=== PATIENT | male | born 1955 | race American Indian/Alaskan Native ===

== ENCOUNTER 2021-01-20 15:46 | Outpatient (CLI) | payer MEDICARE, OTHER ==
--- NOTE | 2021-01-20 16:54 | XRay Report ---
CHEST 2 VIEWS INDICATION / CLINICAL INFORMATION: POST COVID 19 CONDITION B94.8. COMPARISON: None available. FINDINGS: SUPPORT DEVICES: None. HEART / MEDIASTINUM: No significant abnormality. LUNGS / PLEURA: Mild increased interstitial prominence in left perihilar region and retrocardiac nithya on left lower lung. No pneumothorax. Signer Name: Edmundo Harvey MD Signed: 01/20/2021 4:50 PM Workstation Name: [id number]
== END 2021-01-20 15:47 | disposition home or self-care (01) ==
LOC: SPVIMAG 15:46
PROVIDERS: ATTEND Internal Medicine
DX: R91.8 Other nonspecific abnormal finding of lung field (principal); B94.8 Sequelae of other specified infectious and parasitic diseases
CPT/HCPCS: 71046